=== PATIENT | female | born 1935 | race Caucasian/White ===

== ENCOUNTER 2016-06-16 19:51 | Emergency (ER) | payer MEDICARE, BC ==
[~2016-06-16] VITALS: Ht 160 cm; Wt 50.0 kg
[~2016-06-16 19:51] MED LIST: ASPI81; TAB-TAB
[2016-06-16 19:57] VITALS: BP 140/64; PULSE 59; RESP 20; TEMP 98.3; O2SAT 98
[2016-06-16] MEDS ORDERED: MULT1TAB84 PO (20:10)
[2016-06-16] MEDS ORDERED: LISI-515 PO (20:10)
--- NOTE | 2016-06-16 20:15 | PD ---
HPI . 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 Patient says that she bent over and felt pain and all of a sudden started to experience bleeding from the facial lesion. She decided to come in to the emergency room for further evaluation. Patient is accompanied by her son and . She denies any sort of pain. She denies any weakness, fatigue, nausea, chest pain, shortness of breath, fever or chills. She denies any trauma. 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) Social History Alcohol Use: Yes (RARELY) Tobacco Use: No Substance Use: No Allergies-Medications (Allergen,Severity, Reaction): Coded Allergies: Lactose (Verified Allergy, Severe, 06/16/16) Latex (Verified Allergy, Severe, Anaphylaxis, 06/16/16) Penicillin (Verified Allergy, Severe, Rash, 06/16/16) Sulfa (Verified Allergy, Severe, Rash, 06/16/16) Reported Meds & Prescriptions Reported Meds & Active Scripts Active Reported Multivitamin Adults (Multiple Vitamins W/ Minerals) 1 Tab 1 Tab PO DAILY Lisinopril 20 Mg Tab 20 Mg PO DAILY Review of Systems General / Constitutional: No: Fever Eyes: No: Visual changes HENT: No: Headaches Cardiovascular: No: Chest Pain or Discomfort Respiratory: No: Shortness of Breath Gastrointestinal: No: Abdominal Pain Genitourinary: No: Dysuria Musculoskeletal: No: Pain Skin: Positive Lesions (bleeding facial lesion), No Rash Neurologic: No: Weakness Psychiatric: No: Depression Endocrine: No: Polydipsia Hematologic/Lymphatic: No: Easy Bruising Physical Exam Narrative GENERAL: AAO x 3, no acute distress, Well-nourished, well-developed patient. SKIN: Warm and dry. Left cheek with large facial mass protruding out. Clean and without evidence of infection. There is very minimal bleeding at this moment, witness by nurse and both family members. HEAD: Normocephalic and atraumatic. EYES: No scleral icterus. No injection or drainage. ENT: No nasal drainage noted. Mucous membranes pink. Airway patent. NECK: Supple, trachea midline. No JVD. CARDIOVASCULAR: Regular rate and rhythm without murmurs, gallops, or rubs. RESPIRATORY: Breath sounds equal bilaterally. No accessory muscle use. No rhonchi or rales. GASTROINTESTINAL: Abdomen soft, non-tender, nondistended. EXTREMITIES: No cyanosis or edema. BACK: Nontender without obvious deformity. No CVA tenderness. PSYCH: AAO x 3, normal affect. 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 Patient says that she bent over and felt pain and all of a sudden started to experience bleeding from the facial lesion. She decided to come in to the emergency room for further evaluation. Patient is accompanied by her son and . She denies any sort of pain. She denies any weakness, fatigue, nausea, chest pain, shortness of breath, fever or chills. She denies any trauma. Patient seen and examined. There is no abnormal findings on exam except for large facial mass. Dressing taken off and there is very minimal bleeding. Area cleaned by the nurse and dressed. Advised dressing changes twice a day. Continue f/u with hospice. Return to ED if symptoms worsen. Patient, son and verbalize that they want patient to get a dressing change and go home. I offered labs to check CBC in anticipation of possible transfusion, but they declined. Discussed that patient shows no signs of symptomatic anemia. She is comfortable and exam is benign. Patient verbalized understanding of instructions, questions were answered, and thanked me for their care. I advised them if their condition worsens, please return to the nearest emergency room for further care. Diagnosis Primary Impression: Face lesion Patient Instructions: Chronic Wound Care (ED), General Instructions Additional Instructions: Return to emergency department if your symptoms return or worsen. Change dressings twice a day. Disposition: 01 DISCHARGE HOME Condition: Stable Ryann Adkins Jun 16, 2016 20:14
== END 2016-06-16 21:20 | disposition home or self-care (01) ==
LOC: NEPC 19:51
DX: L98.8 Other specified disorders of the skin and subcutaneous tissue (principal); R58 Hemorrhage, not elsewhere classified; R22.0 Localized swelling, mass and lump, head; Z85.89 Personal history of malignant neoplasm of other organs and systems
CPT/HCPCS: 99283